=== PATIENT | male | born 1980 | race Two or more races ===

== ENCOUNTER 2023-08-06 09:46 | Day surgery (SDC) | payer OTHER, SELFPAY ==
[2023-08-06] VITALS (13 sets, daily range): BP systolic 128–157; BP diastolic 60–99; PULSE 76–100; RESP 12–40; TEMP 36.1–37.7; O2SAT 95–99; BMI 32.4
--- NOTE | ~2023-08-06 | CT_ITS ---
EXAMINATION: CT ABDOMEN AND PELVIS WITH CONTRAST CLINICAL INFORMATION: Abdominal pain, nausea, vomiting, hematemesis. COMPARISON: None available. TECHNIQUE: Multidetector volumetric images were obtained from the superior aspect of the liver through the pubic symphysis following administration 85 mL of Omnipaque 350 intravenous contrast. Sagittal and coronal reformatted images were obtained on the technologist's workstation. Oral contrast: No This CT examination was performed using dose optimization techniques as appropriate, variously including the following: *Automated exposure control *Adjustment of mA and/or kV according to patient size (this includes techniques or standardized protocols for targeted exams where dose is matched to indication/reason for exam; i.e. extremities or head) *Use of iterative reconstruction technique DLP: 590 mGy-cm FINDINGS: LUNG BASES: Normal. No pulmonary consolidation or pleural effusion. LIVER: Liver has normal size and contour. The liver has attenuation approximately 25 HU lower than the spleen on these portal venous phase images which suggests presence of steatosis. Otherwise, liver is unremarkable. GALLBLADDER AND BILIARY TREE: Gallbladder is without radiopaque stones, wall thickening or pericholecystic fluid. No dilated bile ducts. PANCREAS: Normal. No edema, pancreatic ductal dilatation or mass. SPLEEN: Normal. ADRENAL GLANDS: Normal. KIDNEYS AND URETERS: The kidneys have normal size and cortical thickness. No perinephric edema, urolithiasis or hydroureteronephrosis. 1.4 cm simple cyst of the left upper pole. No renal imaging follow-up is recommended for a simple cyst. BLADDER: Normal. No calculi or wall thickening. BOWEL AND PERITONEUM: There appears to be a very small sliding-type hiatal hernia. No dilated bowel loops. There are a few diverticula of the sigmoid colon without evidence of diverticulitis. The appendix measures up to 1.3 cm diameter and trace amount of periappendiceal fluid is noted. There is no visible focal defect in the appendiceal wall. No abscess. No pneumoperitoneum. ABDOMINAL WALL: Minimal protrusion of fat into the umbilicus. VASCULATURE: Normal. LYMPH NODES: No pathologic sized lymph nodes in the abdomen or pelvis. No inguinal lymphadenopathy. PELVIC VISCERA: Unremarkable. MUSCULOSKELETAL: Unremarkable. CT/CT abdomen pelvis w IV con IMPRESSION: * The appendix is dilated up to 1.3 cm and trace periappendiceal free fluid is present. Findings are consistent with acute appendicitis. * Diffuse hepatic steatosis. The critical test result was discussed with Yennifer Wilkinson at 2:17 pm on 08/06/2023 and it was ascertained that the content and the importance of the findings was understood at the time of the direct communication.
--- NOTE | 2023-08-06 10:02 | ED_ITS ---
HPI - Nausea/Vomiting/Diarrhea General Chief complaint: Abdominal Pain Stated complaint: Vomiting blood Time Seen by Provider: 08/06/23 09:55 Source: patient, RN notes reviewed and old records reviewed Mode of arrival: ambulatory Limitations: no limitations History of Present Illness HPI Narrative: 43 yo male with PMHx of PUD presents to the ED today with a complaint of diffuse abdominal pain and vomiting blood x1 day. Reports intractable nausea/vomiting, with dark red/black and green emesis. Admits symptoms are relieved with hot showers. Denies fever, chills, cough, chest pain, SOB, diarrhea or constipation, melena, brbpr, dysuria or hematuria. Not on AC. Denies illicit drug use including marijuana. MD elicited complaint: nausea and vomiting Related Data Allergies Allergy/AdvReac Type Severity Reaction Status Date / Time No Known Allergies Allergy Verified 08/06/23 09:48 Review of Systems Review of Systems: Constitutional: No Fever, No Chills, No Night Sweats, No Fatigue ENT/Mouth: No Ear Pain, No Nasal Congestion, No sore throat, No Rhinorrhea, No Swallowing Difficulty Eyes: No Eye Pain, No Swelling, No Redness Cardiovascular: No Chest Pain, No SOB, No Dyspnea on Exertion,No Edema, No Palpitations Respiratory: No Cough, No Sputum, No Dyspnea Gastrointestinal: + Nausea, + Vomiting, + hematemesis, No Diarrhea, No Con stipation, + Abdominal pain, No Hematochezia, No Melena Genitourinary: No irregular bleeding, No Dysuria, No Urinary Frequency, No Hematuria, No Urinary Incontinence/retention, No Urgency, No Flank Pain, No Urinary Flow Changes, No Hesitancy Musculoskeletal: No joint pain, No Myalgias, No Joint Swelling Skin: No Skin Lesions, No rash Neuro: No Weakness, No Numbness, No Dizziness, No Headache Yes all other systems are reviewed and are negative [facility] Past Medical History Attestation statement: The following information was validated with the patient. Source: old records reviewed Social History Social History Advance Directives: No Advance Directives Information Provided: Yes Physical Exam Vital Signs: Vital Signs: Last Vital Signs Temp 100 F 08/06/23 15:07 Pulse 76 08/06/23 15:07 Resp 12 08/06/23 15:07 BP 132/84 08/06/23 15:07 Pulse Ox 98 08/06/23 15:07 O2 Del Method Room Air 08/06/23 15:07 BMI result Body Mass Index 32.4 Const: Other: dry heaving during eval General: cooperative, no acute distress and anxious Orientation/consciousness: patient oriented x3 Limitations: no limitations HEENT: Head: Yes normal to inspection and Yes atraumatic Ears: hearing gr ossly normal bilaterally General nose exam: Normal external nose present Face and sinus: Yes normal facial exam Eyes: General: appearance normal, both eyes and all related structures EOM: EOMs intact bilaterally Neck: Neck: Yes normal visual inspection and Yes no meningeal signs Resp: Effort & Inspection: normal respiratory effort and no respiratory distr ess Auscultation: clear to auscultation bilaterally Cardio: Rate: regular rate Heart sounds: S1 normal heart sound present and S2 normal heart sound present GI: Inspection: Yes normal to inspection Palpation (GI): Soft to palpation, Tenderness to palpation present (GI) (diffusely) with no rebound tenderness, no guarding and not rigid : General: Yes no CVA tenderness Back/Spine/Pelvis: Back: no CVA tenderness Skin: Rashes: no rashes Wounds: no wounds Neuro: General: patient oriented x3, tone normal and no meningeal signs Cranial nerves: Yes CN's II-XII intact bilaterally Gait exam (Neuro): Normal gait present Extrem: General: Yes normal to inspection Course Course Course Narrative: -1111--noted leukocytosis of 19.8 > likely reactive from nausea/vomiting and dry heaving. T bili and ALT mildly elevated -labs otherwise reassuring -[id number]--received call from [facility] patient with acute appendicitis measuring 1.3 cm with fluid and +FF >> general surgery, Dr. Lopez consulted > patient will be admitted to surgery for further management Medications Administered Discontinued Medications Generic Name Dose Route Start Last Admin Trade Name Freq PRN Reason Stop Dose Admin Famotidine 20 mg 08/06/23 10:13 08/06/23 10:29 Famotidine/Pf 20 Mg/2 Ml Vial IVPUSH 08/06/23 10:14 20 mg ONCE ONE Administration Sodium Chloride 1,000 mls @ 999 mls/hr 08/06/23 10:15 08/06/23 11:35 Ns IV 08/06/23 11:15 Infused .Q1H1M DAGO Infusion Piperacillin Sod/Tazobactam 50 mls @ 100 mls/hr 08/06/23 11:11 08/06/23 12:41 Sod 3.375 gm/ Sodium Chloride IV 08/06/23 11:40 Infused ONCE ONE Infusion Iohexol 100 ml 08/06/23 13:29 08/06/23 13:30 Iohexol 350 Mg/Ml 100 Ml Infus..Btl IV 08/06/23 13:30 85 ml ONCE ONE Administration Morphine Sulfate 4 mg 08/06/23 10:13 08/06/23 10:32 Morphine Sulfate 2 Mg/Ml Cartridge IVPUSH 08/06/23 10:14 4 mg ONCE ONE Administration Protocol Ondansetron HCl 4 mg 08/06/23 10:13 08/06/23 10:29 Ondansetron Hcl 4 Mg/2 Ml Vial IVPUSH 08/06/23 10:14 4 mg ONCE ONE Administration Medical Decision Making Medical Decision Making MDM Narrative: 43 yo male with PMHx of PUD presents to the ED today with a complaint of diffuse abdominal pain and vomiting blood x1 day. Reports intractable nausea/vomiting, with dark red/black and green emesis. Patient initially tachypnic to 40 se condary to pain and dry heaving. Now down to 22 respirations/minute. Afebrile. Normal sinus rhythm. Abdomen soft, diffusely tender to palpation without rebound or guarding. No CVAT, no blood noted on rectal. Clinical concern for PUD vs GI bleed vs gastroenteritis vs dehydration vs pancreatitis vs diverticulitis. Low suspicion for ischemic bowel, diverticulosis, bowel perforation, appendicitis, cholecystitis, acute abdomen. Plan: labs, imaging, IVF, abx, pain control Please refer to course for remaining clinical decision making, interpretation of labs/imaging results, and discussions with consultants and/or family members. Differential Diagnosis Differential Diagnoses: The differential diagnosis associated with the presentation includes As above Admission/Observation Consideration of admission/observation: Escalation of care including admission/observation considered Admitted to general surgery for acute appendicitis. Consult Healthcare Provider Management of the patient was discussed with: Blueprint Machine Operator (General surgery- Dr. Melissa) Lab Data [facility] Lab Attestation statement: I reviewed the patient's lab results. As above. 08/06/23 10:27 08/06/23 10:27 Labs: Lab Results 08/06/23 08/06/23 08/06/23 Range/Units 10:27 10:27 10:27 WBC 19.8 H (4.8-10.8) X10*3/uL RBC 5.15 (4.60-5.80) X10*6/uL Hgb 16.0 (14.0-18.0) g/dl Hct 45.3 (42.0-52.0) % MCV 88.0 (80.0-98.0) fL MCH 31.1 (27.0-33.0) pg MCHC 35.3 (31.0-36.0) g/dl RDW 12.2 (11.0-16.0) % Plt Count 418 H (160-400) X10*3/uL MPV 9.5 (9.4-12.4) fL Immature Gran % (Auto) 0.7 H (0.0-0.4) % Neut % (Auto) 85.1 H (45-73) % Lymph % (Auto) 10.5 L (20-40) % [place] % (Auto) 3.5 (2-11) % Eos % (Auto) 0.0 (0-4) % Baso % (Auto) 0.2 (0-2) % Lymph # (Auto) 2.1 (1.2-4.9) X10*3/uL [place] # (Auto) 0.7 (0.1-1.2) X10*3/uL Eos # (Auto) 0.0 (0.0-0.4) X10*3/uL Baso # (Auto) 0.0 (0.0-0.2) X10*3/uL Abs Immat Gran (auto) 0.13 H (0.00-0.03) X10*3/uL Absolute Neuts (auto) 16.8 H (2.0-8.3) x10*3/uL Absolute Nucleated RBC 0.000 (0.0-0.012) X10*3/uL Nucleated RBC % (auto) 0.0 (0.0-0.2) /100WBC PT 14.2 H (11.1-13.3) SEC INR 1.2 H (0.9-1.1) Sodium 141 (135-145) mmol/L Potassium 4.3 (3.3-5.1) mmol/L Chloride 105 (96-108) mmol/L Carbon Dioxide 22 (22-29) mmol/L Anion Gap 18 (12-20) BUN 15 (9-16) mg/dL Creatinine 1.12 (0.5-1.4) mg/dL Estim Creat Clear Calc 91.9 Estimated GFR > 60 Random Glucose 154 H (60-115) mg/dL Lactic Acid (0.5-2.0) mmol/L Calcium 10.6 H (8.4-10.2) mg/dL Magnesium 1.6 (1.6-2.6) mg/dL Total Bilirubin 1.2 H (0.0-1.0) mg/dL Direct Bilirubin 0.4 (0.0-0.5) mg/dL AST 32 (5-37) U/L ALT 68 H (0-40) U/L Alkaline Phosphatase 77 (39-117) U/L Total Protein 8.2 H (6.5-8.0) g/dL Albumin 4.9 (3.5-5.0) g/dL Lipase 16 (8-78) U/L Urine Color Urine Appearance Urine pH (5.0-9.0) Ur Specific [place] (1.005-1.025) Urine Protein (Neg-Trace) mg/dL Urine Glucose (UA) (Negative) mg/dL Urine Ketones (Negative) mg/dL Urine Blood (Negative) Urine Nitrite (Negative) Ur Leukocyte Esterase (Negative) Urine RBC (0-2) /HPF Urine WBC (0-5) /HPF Ur Squamous Epith Cells (0-2) /HPF Urine Bacteria (None Seen) Hyaline Casts (0-2) /LPF Stool Occult Blood (NEGATIVE) Urine Opiates Screen (Not Detect) Urine Fentanyl Screen (Not Detect) Ur Barbiturates Screen (Not Detect) Ur Phencyclidine Scrn (Not Detect) Ur Amphetamines Screen (Not Detect) U Benzodiazepines Scrn (Not Detect) Urine Cocaine Screen (Not Detect) U Marijuana (THC) Screen (Not Detect) Ethyl Alcohol mg/dL 08/06/23 08/06/23 08/06/23 Range/Units 10:53 11:12 11:12 WBC (4.8-10.8) X10*3/uL RBC (4.60-5.80) X10*6/uL Hgb (14.0-18.0) g/dl Hct (42.0-52.0) % MCV (80.0-98.0) fL MCH (27.0-33.0) pg MCHC (31.0-36.0) g/dl RDW (11.0-16.0) % Plt Count (160-400) X10*3/uL MPV (9.4-12.4) fL Immature Gran % (Auto) (0.0-0.4) % Neut % (Auto) (45-73) % Lymph % (Auto) (20-40) % [place] % (Auto) (2-11) % Eos % (Auto) (0-4) % Baso % (Auto) (0-2) % Lymph # (Auto) (1.2-4.9) X10*3/uL [place] # (Auto) (0.1-1.2) X10*3/uL Eos # (Auto) (0.0-0.4) X10*3/uL Baso # (Auto) (0.0-0.2) X10*3/uL Abs Immat Gran (auto) (0.00-0.03) X10*3/uL Absolute Neuts (auto) (2.0-8.3) x10*3/uL Absolute Nucleated RBC (0.0-0.012) X10*3/uL Nucleated RBC % (auto) (0.0-0.2) /100WBC PT (11.1-13.3) SEC INR (0.9-1.1) Sodium (135-145) mmol/L Potassium (3.3-5.1) mmol/L Chloride (96-108) mmol/L Carbon Dioxide (22-29) mmol/L Anion Gap (12-20) BUN (9-16) mg/dL Creatinine (0.5-1.4) mg/dL Estim Creat Clear Calc Estimated GFR Random Glucose (60-115) mg/dL Lactic Acid (0.5-2.0) mmol/L Calcium (8.4-10.2) mg/dL Magnesium (1.6-2.6) mg/dL Total Bilirubin (0.0-1.0) mg/dL Direct Bilirubin (0.0-0.5) mg/dL AST (5-37) U/L ALT (0-40) U/L Alkaline Phosphatase (39-117) U/L Total Protein (6.5-8.0) g/dL Albumin (3.5-5.0) g/dL Lipase (8-78) U/L Urine Color Yellow Urine Appearance Clear Urine pH 7.0 (5.0-9.0) Ur Specific [place] >= 1.030 H (1.005-1.025) Urine Protein 30 (1+) H (Neg-Trace) mg/dL Urine Glucose (UA) Negative (Negative) mg/dL Urine Ketones >=160 (Negative) mg/dL Urine Blood Negative (Negative) Urine Nitrite Negative (Negative) Ur Leukocyte Esterase Negative (Negative) Urine RBC 3-5 H (0-2) /HPF Urine WBC 0-5 (0-5) /HPF Ur Squamous Epith Cells 0-2 (0-2) /HPF Urine Bacteria None Seen (None Seen) Hyaline Casts 0-2 (0-2) /LPF Stool Occult Blood NEGATIVE (NEGATIVE) Urine Opiates Screen (Not Detect) Urine Fentanyl Screen (Not Detect) Ur Barbiturates Screen (Not Detect) Ur Phencyclidine Scrn (Not Detect) Ur Amphetamines Screen (Not Detect) U Benzodiazepines Scrn (Not Detect) Urine Cocaine Screen (Not Detect) U Marijuana (THC) Screen (Not Detect) Ethyl Alcohol < 10 mg/dL 08/06/23 08/06/23 Range/Units 11:12 11:43 WBC (4.8-10.8) X10*3/uL RBC (4.60-5.80) X10*6/uL Hgb (14.0-18.0) g/dl Hct (42.0-52.0) % MCV (80.0-98.0) fL MCH (27.0-33.0) pg MCHC (31.0-36.0) g/dl RDW (11.0-16.0) % Plt Count (160-400) X10*3/uL MPV (9.4-12.4) fL Immature Gran % (Auto) (0.0-0.4) % Neut % (Auto) (45-73) % Lymph % (Auto) (20-40) % [place] % (Auto) (2-11) % Eos % (Auto) (0-4) % Baso % (Auto) (0-2) % Lymph # (Auto) (1.2-4.9) X10*3/uL [place] # (Auto) (0.1-1.2) X10*3/uL Eos # (Auto) (0.0-0.4) X10*3/uL Baso # (Auto) (0.0-0.2) X10*3/uL Abs Immat Gran (auto) (0.00-0.03) X10*3/uL Absolute Neuts (auto) (2.0-8.3) x10*3/uL Absolute Nucleated RBC (0.0-0.012) X10*3/uL Nucleated RBC % (auto) (0.0-0.2) /100WBC PT (11.1-13.3) SEC INR (0.9-1.1) Sodium (135-145) mmol/L Potassium (3.3-5.1) mmol/L Chloride (96-108) mmol/L Carbon Dioxide (22-29) mmol/L Anion Gap (12-20) BUN (9-16) mg/dL Creatinine (0.5-1.4) mg/dL Estim Creat Clear Calc Estimated GFR Random Glucose (60-115) mg/dL Lactic Acid 1.7 (0.5-2.0) mmol/L Calcium (8.4-10.2) mg/dL Magnesium (1.6-2.6) mg/dL Total Bilirubin (0.0-1.0) mg/dL Direct Bilirubin (0.0-0.5) mg/dL AST (5-37) U/L ALT (0-40) U/L Alkaline Phosphatase (39-117) U/L Total Protein (6.5-8.0) g/dL Albumin (3.5-5.0) g/dL Lipase (8-78) U/L Urine Color Urine Appearance Urine pH (5.0-9.0) Ur Specific [place] (1.005-1.025) Urine Protein (Neg-Trace) mg/dL Urine Glucose (UA) (Negative) mg/dL Urine Ketones (Negative) mg/dL Urine Blood (Negative) Urine Nitrite (Negative) Ur Leukocyte Esterase (Negative) Urine RBC (0-2) /HPF Urine WBC (0-5) /HPF Ur Squamous Epith Cells (0-2) /HPF Urine Bacteria (None Seen) Hyaline Casts (0-2) /LPF Stool Occult Blood (NEGATIVE) Urine Opiates Screen POSITIVE H (Not Detect) Urine Fentanyl Screen Not Detected (Not Detect) Ur Barbiturates Screen Not Detected (Not Detect) Ur Phencyclidine Scrn Not Detected (Not Detect) Ur Amphetamines Screen Not Detected (Not Detect) U Benzodiazepines Scrn Not Detected (Not Detect) Urine Cocaine Screen POSITIVE H (Not Detect) U Marijuana (THC) Screen POSITIVE H (Not Detect) Ethyl Alcohol mg/dL Independent Interpretation I performed an independent interpretation of an: EKG (EKG normal sinus rhythm at a rate of 94. [place] interval 152. Nonspecific ST abnormality, prolonged QT. No STEMI) and CT Scan Interpretation: CT scan abdomen and pelvis showing free fluid around the appendix, agree with radiologist's interpretation. Radiology Impression Discussion of test interpretation with radiology: I have reviewed the radiologist's reading. Radiologist Impression: CT abdomen pelvis w IV con IMPRESSION: The appendix is dilated up to 1.3 cm and trace periappendiceal free fluid is present. Findings are consistent with acute appendicitis. Diffuse hepatic steatosis. ? ? The critical test result was discussed with Yennifer Wilkinson at 2:17 pm on 08/06/2023 and it was ascertained that the content and the importance of the findings was understood at the time of the direct communication. External Record Review External record reviewed: Inpatient record, Office record, Outpatient record, Prior outpatient labs, Prior outpatient radiology, Primary care record and Outside ED record Tests considered The following testing was considered but not selected: As above Prescription Management I considered prescription management with: Pain Medication Chronic Conditions Patient?s care impacted by: Other (Polysubstance use) Critical Care Time Critical Care Time Critical Care Time: Yes Total Critical Care Time: 45 Attestation: I have personally provided critical care time exclusive of time spent on separately billable procedures. Time includes review of lab data, radiology results, discussion with consultants, and monitoring for potential decompensation. Intervention performed as documented. Discharge Plan Discharge Clinical Impression: Acute appendicitis Patient Disposition: Admitted As Inpatient Interventions: Admission Worksheet (ED) Last Done: 08/06/23 14:55
--- NOTE | 2023-08-06 10:13 | ECG_ITS ---
Test Reason : abd pain Blood Pressure : / mmHG Vent. Rate : 094 BPM Atrial Rate : 094 BPM P-R Int : 152 ms QRS Dur : 088 ms QT Int : 392 ms P-R-T Axes : 072 -65 -14 degrees QTc Int : 490 ms Normal sinus rhythm Left axis deviation Pulmonary disease pattern Nonspecific ST abnormality Prolonged QT Abnormal ECG No previous ECGs available Referred By: Yennifer Wilkinson Electronically Signed By:NITIN CARVALHO
[2023-08-06] MEDS: Famotidine/PF 20 MG/2 ML VIAL IVPUSH (10:29)
[2023-08-06] MEDS: ondansetron HCL 4 MG/2 ML VIAL IVPUSH (10:29)
[2023-08-06] MEDS: 0.9 % Sodium Chloride 1,000 ML 999 ML IV (10:32)
[2023-08-06] MEDS: Morphine Sulfate 2 MG/ML CARTRIDGE 4 MG IVPUSH (10:32)
[2023-08-06 10:40] LABS: MANUAL DIFF FLAG NO
[2023-08-06 10:42] LABS: Basophils Percent Auto 0.2 % (0-2); Hematocrit 45.3 % (42.0-52.0); Imm Gran Abs Auto 0.13 X10*3/uL (0.00-0.03); Imm Gran Pct Auto 0.7 % (0.0-0.4); Lymphocytes Absolute Auto 2.1 X10*3/uL (1.2-4.9); Lymphocytes Percent Auto 10.5 % (20-40); Mean Corpuscular HGB Conc 35.3 g/dl (31.0-36.0); Mean Corpuscular Hemoglobin 31.1 pg (27.0-33.0); Mean Platelet Volume 9.5 fL (9.4-12.4); Monocytes Absolute Auto 0.7 X10*3/uL (0.1-1.2); Monocytes Percent Auto 3.5 % (2-11); Neutrophils Absolute Auto 16.8 x10*3/uL (2.0-8.3); Neutrophils Percent Auto 85.1 % (45-73); Platelet Count 418 X10*3/uL (160-400); Red Blood Count 5.15 X10*6/uL (4.60-5.80); Red Cell Distribution Width 12.2 % (11.0-16.0); White Blood Count 19.8 X10*3/uL (4.8-10.8)
[2023-08-06 10:49] LABS: INTERNATIONAL NORM RATIO 1.2 (0.9-1.1); Prothrombin Time 14.2 SEC (11.1-13.3)
[2023-08-06 11:04] LABS: Alanine Aminotransferase 68 U/L (0-40); Albumin Level 4.9 g/dL (3.5-5.0); Alkaline Phosphatase 77 U/L (39-117); Anion Gap 18 (12-20); Aspartate Amino Transferase 32 U/L (5-37); Bilirubin Direct 0.4 mg/dL (0.0-0.5); Bilirubin Total 1.2 mg/dL (0.0-1.0); Blood Urea Nitrogen 15 mg/dL (9-16); Calcium 10.6 mg/dL (8.4-10.2); Carbon Dioxide 22 mmol/L (22-29); Chloride 105 mmol/L (96-108); Creatinine Clr Calc Pharmacy 91.9; Estimated Glomerular Filt Rate > 60; Glucose Random 154 mg/dL (60-115); Lipase 16 U/L (8-78); Magnesium 1.6 mg/dL (1.6-2.6); Potassium 4.3 mmol/L (3.3-5.1); Sodium 141 mmol/L (135-145); Total Protein 8.2 g/dL (6.5-8.0)
[2023-08-06 11:15] LABS: Ethanol < 10 mg/dL
[2023-08-06 11:24] LABS: Appearance Urine Clear; Color Urine Yellow; Glucose Urine UA Negative (Negative); Leukocyte Esterase Urine Negative (Negative); Nitrite Urine Negative (Negative); OBS Int Ctl Valid YES; OBS1 NEGATIVE (NEGATIVE); Specific Gravity - Urine >= 1.030 (1.005-1.025); UMIC TRIGGER UACC YES; Urine Blood Negative (Negative); Urine Ketones >=160 mg/dL (Negative); Urine Protein 30 (1+) mg/dL (Neg-Trace)
[2023-08-06 11:27] LABS: Bacteria Urine None Seen (None Seen); Hyaline Casts Urine 0-2 /LPF (0-2); Squamous Epithelial Cell Urine 0-2 /HPF (0-2); WBC Urine 0-5 /HPF (0-5)
[2023-08-06 11:36] LABS: Amphetamine Screen Urine Not Detected (Not Detect); Barbiturates, Urine Not Detected (Not Detect); Benzodiazepines Screen Urine Not Detected (Not Detect); Cannabinoid Screen Urine POSITIVE (Not Detect); Cocaine Screen Urine POSITIVE (Not Detect); Fentanyl, urine Not Detected (Not Detect); Opiate Screen Urine POSITIVE (Not Detect); Phencyclidine Screen Urine Not Detected (Not Detect)
[2023-08-06] MEDS: Piperacillin Sodium/Tazobactam 3.375 GM in 0.9 % Sodium Chloride 50 ML IV (11:57)
[2023-08-06 12:08] LABS: Lactic Acid 1.7 mmol/L (0.5-2.0)
--- NOTE | 2023-08-06 12:53 | PC.NURSE ---
patient resting in bed, states he is feeling better, states his pain is under control witha 2
[2023-08-06] MEDS: iohexoL 350 MG/ML 100 ML INFUS..BTL IV (13:30)
--- NOTE | 2023-08-06 14:41 | P.HPGS_ITS ---
History of Present Illness History of Present Illness Date of Service: 08/06/23 Chief complaint: Vomiting blood Narrative: 43-year-old male patient presenting with complaints of abdominal pain associated with nausea, vomiting, constipation and hematemesis. He reports upper abdominal pain for approximately 1 year since his previous abdominal surgery. He reports over the past 2 days the pain became worse is located more in the lower abdomen, associated with anorexia, nausea and vomiting. The pain is made better by warm water any spent several hours in the shower yesterday for relief. Pain is increased with eating. Workup in the emergency department revealed an elevated WBC of 19. CT abdomen and pelvis revealed an inflamed appendix measuring 1.3 cm. Also noted was a sliding hiatal hernia. He is admitted to the surgical service for management of acute appendicitis. Review of Systems Review of Systems: Yes all other systems are reviewed and are negative Constitutional: Constitutional: Denies chills, Reports fever(s), Denies headache(s), Reports poor appetite and Denies weakness ENT: Denies headache(s) Cardiovascular: Cardiovascular: Denies chest pain, Denies irregular heart rhythm, Denies palpitations and Denies dyspnea Respiratory: Respiratory: Denies cough, Denies excessive phlegm production and Denies dyspnea Gastrointestinal: Gastrointestinal: Reports abdominal pain, Reports bloating, Denies change in bowel habits, Reports constipation, Reports heartburn, Denies diarrhea, Reports nausea and Reports vomiting Genitourinary: Genitourinary: Denies difficulty urinating and Denies urinary frequency Musculoskeletal: Musculoskeletal: Denies back pain, Denies muscle weakness and Denies numbness Integumentary/Breasts: Skin/Breast: Denies changing lesions and Denies unusual bruising Neurologic: Denies headache(s), Denies numbness, Denies paresthesias and Denies weakness Psychiatric: Psychiatric: Denies anxiety and Denies depression Endocrine: Endocrine: Denies palpitations Hematologic/Lymphatic: Hematologic/Lymphatic: Denies lymphadenopathy [facility] Social History Social History Advance Directives: No Advance Directives Information Provided: Yes Meds Allergies Allergy/AdvReac Type Severity Reaction Status Date / Time No Known Allergies Allergy Verified 08/06/23 09:48 Physical Exam Vital Signs: Vital Signs: Last Vital Signs Temp 98.0 F 08/06/23 14:37 Pulse 77 08/06/23 14:37 Resp 18 08/06/23 14:37 BP 132/84 08/06/23 14:37 Pulse Ox 97 08/06/23 14:37 O2 Del Method Room Air 08/06/23 14:37 BMI result Body Mass Index 32.4 Const: General: cooperative and no acute distress Nutritional Appearance: well nourished Orientation/consciousness: patient oriented x3 Limitations: no limitations HEENT: Head: Yes normocephalic and Yes atraumatic Ears: hearing grossly normal bilaterally Resp: Effort & Inspection: normal respiratory effort, no audible wheezes, no cough and no respiratory distress Cardio: Jugular venous distension: no JVD GI: Inspection: Yes normal to inspection Palpation (GI): Soft to palpation, Tenderness to palpation present (GI) in the LLQ, in the RLQ and at McBurney's point, no guarding and not rigid Percussion: Yes normal to percussion Auscultation: Absent bowel sounds Rectal Exam - Male: Yes deferred Skin: Other: Warm, dry, no rash Neuro: General: patient oriented x3 Extrem: General: Yes no clubbing, cyanosis or edema Results Results Labs: Short CBC 08/06/23 Range/Units 10:27 WBC 19.8 H (4.8-10.8) X10*3/uL Hgb 16.0 (14.0-18.0) g/dl Hct 45.3 (42.0-52.0) % Plt Count 418 H (160-400) X10*3/uL BMP 08/06/23 10:27 Sodium 141 Potassium 4.3 Chloride 105 Carbon Dioxide 22 BUN 15 Creatinine 1.12 Calcium 10.6 H Liver Function 08/06/23 Range/Units 10:27 Total Bilirubin 1.2 H (0.0-1.0) mg/dL Direct Bilirubin 0.4 (0.0-0.5) mg/dL AST 32 (5-37) U/L ALT 68 H (0-40) U/L Alkaline Phosphatase 77 (39-117) U/L Albumin 4.9 (3.5-5.0) g/dL Urine 08/06/23 Range/Units 11:12 Urine Color Yellow Urine Appearance Clear Urine pH 7.0 (5.0-9.0) Ur Specific [place] >= 1.030 H (1.005-1.025) Urine Protein 30 (1+) H (Neg-Trace) mg/dL Urine Glucose (UA) Negative (Negative) mg/dL Assessment and Plan (1) Acute appendicitis: Status: Acute Plan 43-year-old male patient presenting with complaints of diffuse abdominal pain associated with nausea, vomiting, fever, chills, found on CT to have evidence of acute appendicitis. We discussed with antibiotics verses laparoscopic appendectomy. After discussion of the procedure, risks, and alternatives, he consents to a laparoscopic or possible open appendectomy. He has been added onto the operative schedule for today. Time Spent With Patient Time: Total time managing care of this patient today ____ minutes. Quality Stroke Does the patient have a stroke diagnosis?: No VTE Prior VTE?: No VTE Risk Level:: Surgical - moderate VTE Device Contraindication: N/A - Device Ordered VTE Drug Contraindication: Treatment Not Indicated Procedures Date of Service Date of Service: 08/06/23
--- NOTE | 2023-08-06 15:12 | HO.ANESPROP2 ---
[facility] Active Problems Active Problems: All Active Problems (Updated 08/06/23 @ 14:26 by MERARY Parker) Acute appendicitis (Acute) Surgical History History of Problems with Anesthesia: No Social History Social History Advance Directives: No Advance Directives Information Provided: Yes Meds Allergies Allergy/AdvReac Type Severity Reaction Status Date / Time No Known Allergies Allergy Verified 08/06/23 09:48 Active Medications: Current Medications Hydromorphone HCl (Hydromorphone Hcl 0.5 Mg/0.5 Ml Syringe) 0.5 mg IVPUSH Q3H PRN; Protocol PRN Reason: Pain, Severe (Pain Scale 7-10) Cefotetan Disodium 2 gm/ (Sodium Chloride) 50 mls @ 100 mls/hr IV PREOP ONE Stop: 08/06/23 15:17 Lactated Ringer's (Lr) 1,000 mls @ 100 mls/hr IVCONT .Q10H DAGO Exam Exam Date and Time: August 06, 2023 1512 Height,Weight and Vital Signs: Height 5 ft 7 in Weight 93.894 kg Last Vital Signs Temp 100 F 08/06/23 15:07 Pulse 76 08/06/23 15:07 Resp 12 08/06/23 15:07 BP 132/84 08/06/23 15:07 Pulse Ox 98 08/06/23 15:07 O2 Del Method Room Air 08/06/23 15:07 Pertinent Lab Results Pertinent Lab Results: Laboratory Tests 08/06/23 08/06/23 08/06/23 10:27 10:27 10:27 WBC 19.8 H RBC 5.15 Hgb 16.0 Hct 45.3 MCV 88.0 MCH 31.1 MCHC 35.3 RDW 12.2 Plt Count 418 H MPV 9.5 Immature Gran % (Auto) 0.7 H Neut % (Auto) 85.1 H Lymph % (Auto) 10.5 L [place] % (Auto) 3.5 Eos % (Auto) 0.0 Baso % (Auto) 0.2 Lymph # (Auto) 2.1 [place] # (Auto) 0.7 Eos # (Auto) 0.0 Baso # (Auto) 0.0 Abs Immat Gran (auto) 0.13 H Absolute Neuts (auto) 16.8 H Absolute Nucleated RBC 0.000 Nucleated RBC % (auto) 0.0 PT 14.2 H INR 1.2 H Sodium 141 Potassium 4.3 Chloride 105 Carbon Dioxide 22 Anion Gap 18 BUN 15 Creatinine 1.12 Estim Creat Clear Calc 91.9 Estimated GFR > 60 Random Glucose 154 H Lactic Acid Calcium 10.6 H Magnesium 1.6 Total Bilirubin 1.2 H Direct Bilirubin 0.4 AST 32 ALT 68 H Alkaline Phosphatase 77 Total Protein 8.2 H Albumin 4.9 Lipase 16 Urine Color Urine Appearance Urine pH Ur Specific [place] Urine Protein Urine Glucose (UA) Urine Ketones Urine Blood Urine Nitrite Ur Leukocyte Esterase Urine RBC Urine WBC Ur Squamous Epith Cells Urine Bacteria Hyaline Casts Stool Occult Blood Urine Opiates Screen Urine Fentanyl Screen Ur Barbiturates Screen Ur Phencyclidine Scrn Ur Amphetamines Screen U Benzodiazepines Scrn Urine Cocaine Screen U Marijuana (THC) Screen Ethyl Alcohol 08/06/23 08/06/23 08/06/23 10:53 11:12 11:12 WBC RBC Hgb Hct MCV MCH MCHC RDW Plt Count MPV Immature Gran % (Auto) Neut % (Auto) Lymph % (Auto) [place] % (Auto) Eos % (Auto) Baso % (Auto) Lymph # (Auto) [place] # (Auto) Eos # (Auto) Baso # (Auto) Abs Immat Gran (auto) Absolute Neuts (auto) Absolute Nucleated RBC Nucleated RBC % (auto) PT INR Sodium Potassium Chloride Carbon Dioxide Anion Gap BUN Creatinine Estim Creat Clear Calc Estimated GFR Random Glucose Lactic Acid Calcium Magnesium Total Bilirubin Direct Bilirubin AST ALT Alkaline Phosphatase Total Protein Albumin Lipase Urine Color Yellow Urine Appearance Clear Urine pH 7.0 Ur Specific [place] >= 1.030 H Urine Protein 30 (1+) H Urine Glucose (UA) Negative Urine Ketones >=160 Urine Blood Negative Urine Nitrite Negative Ur Leukocyte Esterase Negative Urine RBC 3-5 H Urine WBC 0-5 Ur Squamous Epith Cells 0-2 Urine Bacteria None Seen Hyaline Casts 0-2 Stool Occult Blood NEGATIVE Urine Opiates Screen Urine Fentanyl Screen Ur Barbiturates Screen Ur Phencyclidine Scrn Ur Amphetamines Screen U Benzodiazepines Scrn Urine Cocaine Screen U Marijuana (THC) Screen Ethyl Alcohol < 10 08/06/23 08/06/23 11:12 11:43 WBC RBC Hgb Hct MCV MCH MCHC RDW Plt Count MPV Immature Gran % (Auto) Neut % (Auto) Lymph % (Auto) [place] % (Auto) Eos % (Auto) Baso % (Auto) Lymph # (Auto) [place] # (Auto) Eos # (Auto) Baso # (Auto) Abs Immat Gran (auto) Absolute Neuts (auto) Absolute Nucleated RBC Nucleated RBC % (auto) PT INR Sodium Potassium Chloride Carbon Dioxide Anion Gap BUN Creatinine Estim Creat Clear Calc Estimated GFR Random Glucose Lactic Acid 1.7 Calcium Magnesium Total Bilirubin Direct Bilirubin AST ALT Alkaline Phosphatase Total Protein Albumin Lipase Urine Color Urine Appearance Urine pH Ur Specific [place] Urine Protein Urine Glucose (UA) Urine Ketones Urine Blood Urine Nitrite Ur Leukocyte Esterase Urine RBC Urine WBC Ur Squamous Epith Cells Urine Bacteria Hyaline Casts Stool Occult Blood Urine Opiates Screen POSITIVE H Urine Fentanyl Screen Not Detected Ur Barbiturates Screen Not Detected Ur Phencyclidine Scrn Not Detected Ur Amphetamines Screen Not Detected U Benzodiazepines Scrn Not Detected Urine Cocaine Screen POSITIVE H U Marijuana (THC) Screen POSITIVE H Ethyl Alcohol Airway Mallampati Class: II TM Dist: >3cm Neck ROM: Full Loose/Missing/Broken Teeth: No Heart: RRR Lungs: CTA Assessment and Plan Assessment Anesthesia Assessment: Anesthesia Plan Discussed and Chart Reviewed Final Anesthetic Review History of Problems with Anesthesia: No NPO: Yes ASA Class: II and Emergency Final Preanesthetic Review: Meds/Allgs Chart Reviewed, Consent Obtained/Reviewed and Anes Risks/Benef Reviewed Patient Risk: Low Procedure Risk: Low Anesthetic Plan Anesthetic Plan: GA Disposition: Standard PACU Assessment & Plan Assessment & Plan (1) Acute appendicitis: Comment: Pt tested positive for cocaine in the urine. Pt adamantly denies cocaine use except for touching cocaine through a bag a few days ago. Pt was advised of all the risks inherent with undergoing anesthesia and surgery under the influence of cocaine including cardiac issues and even . Pt still refuses ingesting it. Surgeon advises emergent nature of surgery and we will go forward. Code(s): K35.80 - Unspecified acute appendicitis Category: Medical
--- NOTE | 2023-08-06 16:16 | PHA.MEDREC ---
Pharmacy Consult ? Medication Reconciliation Pharmacy has completed the medication reconciliation. Patient currently in the OR, med rec done by claim history. Kostas QuirozD
--- NOTE | 2023-08-06 16:35 | W.PM.OPN ---
Operative Note Operative Note Date of Service: 08/06/23 Narrative: Preoperative diagnosis: Acute appendicitis Postoperative diagnosis: Same Procedure: Laparoscopic appendectomy Surgeon: Glen Lopez MD Senior Director Of [employer]:none Anesthesia: General endotracheal Indications for procedure: 43-year-old male patient with abdominal pain diffusely found to have tenderness in the right lower quadrant. Laboratories revealed elevated WBC and CT confirmed acute appendicitis Operative findings: Acute appendicitis without perforation Specimen: Appendix Estimated blood loss: 5 mL Complications: Non Procedure details: Patient was brought to the OR and placed in a supine position. After administering general anesthesia the patient's abdomen was prepped with ChloraPrep and draped in a sterile fashion. A surgical time-out was called and consent confirmed. Patient received preoperative antibiotics and Venodyne boots were in place. Local anesthesia consisting of 0.75% Sensorcaine with epinephrine was infiltrated in periumbilical region. A 5 mm incision was made below the umbilicus and carried down through subcutaneous tissue. A Veress needle was then inserted while elevating abdominal cavity with towel clips. After a positive drop test the abdomen was insufflated to a pressure of 15 mm of mercury. The Veress needle was removed and a 5 mm trocar inserted. The camera was then inserted in the abdomen explored. A 2nd 5 mm trocars placed in the lower midline. A 12 mm trocar was then placed in the left lower quadrant. The patient was then placed in a Trendelenburg position and rotated to the left. The appendix was identified in the right lower quadrant and brought up using blunt dissecting clamps. The mesentery of the appendix was then divided using the LigaSure. The appendiceal artery was cauterized and divided using the LigaSure. Dissection was continued down to the base of the cecum. An Endo-BRICE stapler with a purple reload was then used to divide the appendix at the base with the cecum. The appendix was then placed in Endo-Catch bag and brought out through the left lower quadrant incision. The abdomen was then irrigated with saline solution and suctioned dry. Wounds were checked for hemostasis. CO2 was then evacuated from the abdominal cavity and all trocars removed. Fascia was closed in the left lower quadrant incision using a [id number] 0 Polysorb suture. Skin was closed at all incisions using a subcuticular 4-0 Polysorb suture. Steri-Strips 2 x 2 gauze and Tegaderm were then applied. The patient tolerated the procedure well. Sponge, instrument, needle counts reported as correct. The patient was transferred to PACU in stable condition.
[2023-08-06] MEDS: Dextrose 5 % and Lactated Ring 1,000 ML 125 ML IVCONT (18:19)
[2023-08-06] MEDS: Acetaminophen 1,000 MG/100 ML PIGGYBACK 400 MG IV ×2 (18:19→23:30)
[2023-08-07] MEDS: Dextrose 5 % and Lactated Ring 1,000 ML 125 ML IVCONT (04:07)
[2023-08-07] MEDS: Omeprazole 20 MG CAPSULE.DR PO (05:55)
[2023-08-07 07:10] VITALS: BP 139/81; PULSE 60; RESP 18; TEMP 36.7; O2SAT 98
--- NOTE | 2023-08-07 09:23 | PM.DS ---
DS: Providers Provider Date of Service: 08/07/23 Date of discharge: 08/07/23 Primary care physician: Unknown Physician Admitting clinician: Glen Lopez Discharging clinician: Glen Lopez DS: Diagnosis Discharge Diagnosis (1) Acute appendicitis: Status: Acute DS: Summary Hospital Course Hospital Course: 43-year-old male presenting with complaints of abdominal pain in the lower abdomen. He reports a history of upper abdominal pain related to a hiatal hernia repair 1 year ago however the new pain is more in the lower abdomen right greater than left. He reports nausea, vomiting, anorexia and constipation. Presented to the emergency department for further evaluation. [place] [address] abdomen and pelvis revealed a sliding-type hiatal hernia as well as a thickened appendix measuring 1.3 cm with inflammatory changes suggestive of acute appendicitis. On examination the patient had tenderness in the lower abdomen right greater than left without rebound or guarding. Findings were suggestive of acute appendicitis. Patient underwent a laparoscopic appendectomy on 08/06/2023. Operative findings were consistent with acute appendicitis without perforation. He remained hemodynamically stable throughout the surgery and postoperatively. On postop day 1, the patient felt much improved with decreased abdominal pain. He was able to tolerate a regular diet without nausea or vomiting. He will be discharged home. Plan is for follow-up in the office in 1 week. He should avoid lifting greater than 10 lb for 2 weeks. He may resume regular diet. Should avoid driving for the 1st week after surgery. Time spent discussing smoking cessation with patient: 3 to 10 minutes Status at Discharge Functional status at discharge: independent ambulation Overall status at discharge: patient is back to baseline Time Spent with Patient Time attestation: Total time managing care of this patient today ____ minutes. Discharge coordination time: Less than 30 minutes Quality: Safe Use of Opioids Does Pt have an Active Cancer Diagnosis on the Problem List?: No Quality: Stroke Does the patient have a stroke diagnosis?: No Physical Exam Vital Signs: Vital Signs: Last Vital Signs Temp 98.0 F 08/07/23 07:10 Pulse 60 08/07/23 07:10 Resp 18 08/07/23 07:10 BP 139/81 08/07/23 07:10 Pulse Ox 98 08/07/23 07:10 O2 Del Method Room Air 08/07/23 07:10 BMI result Body Mass Index 32.4 Const: General: no acute distress Resp: Effort & Inspection: normal respiratory effort GI: Other: Trocar incisions are clean, dry, and intact without redness or discharge. Inspection: Yes normal to inspection Skin: Other: Warm, dry, no rash Extrem: Other: No edema DS: Data Data Completed and Pending Pending studies at discharge: Pending at discharge 08/06/23 16:09 Surgical [PTH] Routine Labs on day of discharge: Laboratory Results - last 24 hr 08/06/23 08/06/23 08/06/23 10:27 10:27 10:27 WBC 19.8 H RBC 5.15 Hgb 16.0 Hct 45.3 MCV 88.0 MCH 31.1 MCHC 35.3 RDW 12.2 Plt Count 418 H MPV 9.5 Immature Gran % (Auto) 0.7 H Neut % (Auto) 85.1 H Lymph % (Auto) 10.5 L [place] % (Auto) 3.5 Eos % (Auto) 0.0 Baso % (Auto) 0.2 Lymph # (Auto) 2.1 [place] # (Auto) 0.7 Eos # (Auto) 0.0 Baso # (Auto) 0.0 Abs Immat Gran (auto) 0.13 H Absolute Neuts (auto) 16.8 H Absolute Nucleated RBC 0.000 Nucleated RBC % (auto) 0.0 PT 14.2 H INR 1.2 H Sodium 141 Potassium 4.3 Chloride 105 Carbon Dioxide 22 Anion Gap 18 BUN 15 Creatinine 1.12 Estim Creat Clear Calc 91.9 Estimated GFR > 60 Random Glucose 154 H Lactic Acid Calcium 10.6 H Magnesium 1.6 Total Bilirubin 1.2 H Direct Bilirubin 0.4 AST 32 ALT 68 H Alkaline Phosphatase 77 Total Protein 8.2 H Albumin 4.9 Lipase 16 Urine Color Urine Appearance Urine pH Ur Specific [place] Urine Protein Urine Glucose (UA) Urine Ketones Urine Blood Urine Nitrite Ur Leukocyte Esterase Urine RBC Urine WBC Ur Squamous Epith Cells Urine Bacteria Hyaline Casts Stool Occult Blood Urine Opiates Screen Urine Fentanyl Screen Ur Barbiturates Screen Ur Phencyclidine Scrn Ur Amphetamines Screen U Benzodiazepines Scrn Urine Cocaine Screen U Marijuana (THC) Screen Ethyl Alcohol 08/06/23 08/06/23 08/06/23 10:53 11:12 11:12 WBC RBC Hgb Hct MCV MCH MCHC RDW Plt Count MPV Immature Gran % (Auto) Neut % (Auto) Lymph % (Auto) [place] % (Auto) Eos % (Auto) Baso % (Auto) Lymph # (Auto) [place] # (Auto) Eos # (Auto) Baso # (Auto) Abs Immat Gran (auto) Absolute Neuts (auto) Absolute Nucleated RBC Nucleated RBC % (auto) PT INR Sodium Potassium Chloride Carbon Dioxide Anion Gap BUN Creatinine Estim Creat Clear Calc Estimated GFR Random Glucose Lactic Acid Calcium Magnesium Total Bilirubin Direct Bilirubin AST ALT Alkaline Phosphatase Total Protein Albumin Lipase Urine Color Yellow Urine Appearance Clear Urine pH 7.0 Ur Specific [place] >= 1.030 H Urine Protein 30 (1+) H Urine Glucose (UA) Negative Urine Ketones >=160 Urine Blood Negative Urine Nitrite Negative Ur Leukocyte Esterase Negative Urine RBC 3-5 H Urine WBC 0-5 Ur Squamous Epith Cells 0-2 Urine Bacteria None Seen Hyaline Casts 0-2 Stool Occult Blood NEGATIVE Urine Opiates Screen Urine Fentanyl Screen Ur Barbiturates Screen Ur Phencyclidine Scrn Ur Amphetamines Screen U Benzodiazepines Scrn Urine Cocaine Screen U Marijuana (THC) Screen Ethyl Alcohol < 10 08/06/23 08/06/23 11:12 11:43 WBC RBC Hgb Hct MCV MCH MCHC RDW Plt Count MPV Immature Gran % (Auto) Neut % (Auto) Lymph % (Auto) [place] % (Auto) Eos % (Auto) Baso % (Auto) Lymph # (Auto) [place] # (Auto) Eos # (Auto) Baso # (Auto) Abs Immat Gran (auto) Absolute Neuts (auto) Absolute Nucleated RBC Nucleated RBC % (auto) PT INR Sodium Potassium Chloride Carbon Dioxide Anion Gap BUN Creatinine Estim Creat Clear Calc Estimated GFR Random Glucose Lactic Acid 1.7 Calcium Magnesium Total Bilirubin Direct Bilirubin AST ALT Alkaline Phosphatase Total Protein Albumin Lipase Urine Color Urine Appearance Urine pH Ur Specific [place] Urine Protein Urine Glucose (UA) Urine Ketones Urine Blood Urine Nitrite Ur Leukocyte Esterase Urine RBC Urine WBC Ur Squamous Epith Cells Urine Bacteria Hyaline Casts Stool Occult Blood Urine Opiates Screen POSITIVE H Urine Fentanyl Screen Not Detected Ur Barbiturates Screen Not Detected Ur Phencyclidine Scrn Not Detected Ur Amphetamines Screen Not Detected U Benzodiazepines Scrn Not Detected Urine Cocaine Screen POSITIVE H U Marijuana (THC) Screen POSITIVE H Ethyl Alcohol Discharge Plan Discharge Patient Disposition: Home, Self-Care Referrals: Glen Lopez MD [Physician] - 1 Week Physician,Tiffany J [Primary Care Provider] - 1 Week Discharge Medications: New oxycodone 5 mg tablet 5 mg PO Q6H PRN (Reason: pain (scale score 7-10)) Qty: 15 0RF Rx Instructions: Partial Fill upon patient request. Continued pantoprazole 40 mg tablet,delayed release (DR/EC) 40 mg PO DAILY Discharge Orders: Discharge Order (Routine); Ordered 08/07/23 Ordered By: Glen Lopez Diet: Advance to usual diet Activity on Discharge: No heavy lifting Activity Restrictions/Additional Instructions: No lifting > 10 pounds for 2 weeks No driving for one week Ice to the incision x 24 hours After 24 hours, use warm compress or heating pad on low as needed Take Tylenol Extra-strength 1-2 tabs every 6 hours for the first day, then prn Oxycodone every 6-8 hours as needed for pain Colace 100 mg every day as needed for constipation Remove dressing in 3 days Follow up in office in one week.
--- NOTE | 2023-08-07 11:27 | HO.POSTANES ---
Post Anesthesia Evaluation Post Anesthesia Evaluation Date of Service: 08/07/23 Vital Signs: Vital Signs Temp Pulse Resp BP Pulse Ox O2 Del Method 08/07/23 07:10 98.0 F 60 18 139/81 98 Room Air 08/07/23 02:43 Room Air Anesthesia: General Endotracheal-GETA Mental Status: Awake Pain Control: Satisfactory Nausea/Vomiting: None Hydration: Adequate Anesthesia-Related Issues: No Anes. Related Issues
== END 2023-08-07 10:44 | disposition home or self-care (01) ==
LOC: HO.ED 14:55 → HO.S3 16:43 → HO.MDS 18:13 → HO.S3 18:14
PROVIDERS: Physician Assistant; Emergency Provider Emergency Medicine; Visit Provider Surgery
PROC: 0DTJ4ZZ Resection of Appendix, Percutaneous Endoscopic Approach (ICD-10-PCS; CPT 44970; principal; 2023-08-06 15:30)
DX: K35.80 Unspecified acute appendicitis (principal); K92.0 Hematemesis; K27.9 Peptic ulcer, site unspecified, unspecified as acute or chronic, without hemorrhage or perforation; K76.0 Fatty (change of) liver, not elsewhere classified; R82.5 Elevated urine levels of drugs, medicaments and biological substances; Z79.899 Other long term (current) drug therapy
CPT/HCPCS: 44970; 36415; 74177; 80048; 80076; 80307; 81001; 82272; 83605; 83690; 83735; 85025; 85610; 87040; 88304; 93005; 96361; 96365; 96375; 99285; J0131; J0330; J1100; J1885; J2270; J2405; J2543; J3010; Q9967

== ENCOUNTER → 2023-08-06 10:00 | Outpatient (BNV) | payer OTHER, SELFPAY | PROVIDERS: Emergency Provider Emergency Medicine; Visit Provider Surgery | DX: K35.80 Unspecified acute appendicitis (principal) | CPT/HCPCS: 44970; 99024; 99222 ==

== ENCOUNTER 2023-08-15 08:29 | Outpatient (AMB) | payer OTHER, SELFPAY ==
[2023-08-15 08:38] VITALS: BP 146/80; PULSE 65; BMI 33.1
--- NOTE | 2023-08-15 08:38 | MHC.OFFVIS ---
Intake Vital Signs 08/15/23 08:38 Height 5 ft 7 in Weight 211 lb 6 oz BMI 33.1 BP 146/80 H Blood Pressure Location Lt brachial Position Sitting Pulse 65 Intake Visit Reasons: S/p lap appy Intake Note: Patient is seen in office for post op assessment post laparoscopic appendectomy. Patient c/o: admits to minimal constipation and straining, denies any concerns regarding the incision Exhaust Emissions Automotive Technician Required: No Accompanied by: Self / Same As Patient Allergies No Known Allergies Allergy (Verified 08/15/23 08:40) Medication List - Last Reconciled 08/15/23 by Glen Lopez MD pantoprazole 40 mg PO DAILY HPI HPI Comments History of Present Illness Details 43-year-old male status post laparoscopic appendectomy for acute appendicitis 1 week ago. He feels wrist abdominal pain he also reports decreased upper GI symptoms. He did contact his upper GI surgeon and will be evaluated next week for a possible recurrent hiatal hernia. He denies nausea, vomiting, fever or chills. [facility] Medical History (Updated 08/15/23 @ 08:46 by Glen Lopez MD) Acute appendicitis Surgical History History of laparoscopic appendectomy (~08/06/23) Social History Household Members: Family Housing: House Do you presently have visiting nurse or other home services: No Patient Tobacco Use Status: Never used Tobacco Physical Exam Vital Signs: Last Vital Signs Pulse 65 08/15/23 08:38 BP 146/80 H 08/15/23 08:38 BMI result Body Mass Index 33.1 Const General: comfortable and no acute distress Nutritional Appearance: well nourished Orientation/consciousness: patient oriented x3 Resp Effort & Inspection: normal respiratory effort GI Other: Soft, nondistended, nontender, well-healed trocar incisions. Neuro General: patient oriented x3 Extrem General: Yes normal to inspection Assessment & Plan Assessment & Plan (1) Acute appendicitis: Code(s): K35.80 - Unspecified acute appendicitis Qualifiers: Acute appendicitis type: with localized peritonitis Appendicitis gangrene presence: without gangrene Appendicitis perforation presence: without perforation Appendicitis abscess presence: without abscess Qualified Code(s): K35.30 - Acute appendicitis with localized peritonitis, without perforation or gangrene Plan 43-year-old male patient status post laparoscopic appendectomy 1 week ago. He tolerated the procedure well and his wounds are healing nicely. He should continue to avoid lifting greater than 10 lb and follow-up p.r.n.. He will follow up with his upper GI surgeon regarding the hiatal hernia next week. Coding Level of Care Code Global (34717) Diagnoses Acute appendicitis with localized peritonitis, without perforation, abscess, or gangrene K35.30 Acute appendicitis type: with localized peritonitis Appendicitis gangrene presence: without gangrene Appendicitis perforation presence: without perforation Appendicitis abscess presence: without abscess
== END 2023-08-15 08:53 | disposition home or self-care (01) ==
PROVIDERS: Visit Provider Surgery
DX: K35.30 Acute appendicitis with localized peritonitis, without perforation or gangrene (principal)
CPT/HCPCS: 99024

== ENCOUNTER → 2023-08-15 08:29 | Outpatient (BNVA) | payer OTHER, SELFPAY | PROVIDERS: Visit Provider Surgery ==

== ENCOUNTER 2024-12-24 14:31 | Emergency (ER) | payer OTHER, SELFPAY ==
--- NOTE | ~2024-12-24 | CT_ITS ---
CLINICAL HISTORY: Vomiting blood blood in stool. pmh bleeding ulcer CT Abdomen and Pelvis W/WO Contrast COMPARISON: CT/SR - CT ABDOMEN PELVIS W IV CON - 08/06/23 13:18 EDT FINDINGS: Diffusely hypodense liver consistent with hepatic steatosis. Hepatomegaly. Normal spleen. Subcentimeter hypodensity in the right kidney, too small to accurately characterize. Nonobstructing right renal calculus. No visible ureteral calculi. Unremarkable left kidney. No hydronephrosis. Normal adrenal glands. Normal pancreas. No visible cholelithiasis. No biliary dilation. Colonic diverticulosis without evidence of acute diverticulitis. Mild thickening of the lakhani of the sigmoid colon. No pneumatosis. No evidence of obstruction. No visible intraluminal IV contrast extravasation in the GI tract at the time of the study. Status post appendectomy. Unremarkable bladder. No ascites. No pneumoperitoneum. No lymphadenopathy. No acute fracture. No abdominal aortic aneurysm. Fat-containing umbilical hernia. IMPRESSION: Sigmoid colon wall thickening, which could be due to underdistention or colitis. No evidence of active GI bleed at the time of the study. Nonemergent/incidental findings above. This document has been electronically signed by: Melchor Wynn MD on 12/24/2024 22:09:52
[2024-12-24 15:13] VITALS: BP 170/92; PULSE 72; RESP 18; TEMP 36.1; O2SAT 97; BMI 35.2
--- NOTE | 2024-12-24 15:15 | ED.GENADULT ---
HPI - General Adult General Chief complaint: Abdominal Pain Stated complaint: abd pain rectal bleeding vomiting Time Seen by Provider: 12/24/24 19:28 Source: patient Mode of arrival: ambulatory Limitations: no limitations History of Present Illness ED Provider: Robert Holland HPI narrative: 44 yold with pmh of internal hemmorrhoids, bleeding ulcers, hiatal hernia presents to the ED for generalized abdominal pain, vomitting , diarrhea with bright red blood. Patient denies any chills, fever, or any recent trauma. Patient states he has not take his GERD medication in a while Related Data Home Medications ?Medication ?Instructions ?Recorded ?Confirmed pantoprazole 40 mg tablet,delayed 40 mg PO DAILY 08/06/23 08/15/23 release Previous Rx's ?Medication ?Instructions ?Recorded acetaminophen 325 mg capsule 325 mg PO QID PRN fever or pain 7 12/24/24 days #28 caps amoxicillin 875 mg-potassium 1 tab PO Q12H 10 days #20 tabs 12/24/24 clavulanate 125 mg tablet famotidine 40 mg tablet (Pepcid) 40 mg PO DAILY 14 days #14 tabs 12/24/24 Allergies Allergy/AdvReac Type Severity Reaction Status Date / Time No Known Allergies Allergy Verified 12/24/24 15:16 Review of Systems Review of Systems: abdominal pain, nausea, diarrhea, vomitting blood/blood in stool Yes all other systems are reviewed and are negative [facility] Past Medical History Medical History (Updated 12/25/24 @ 00:01 by Danny Bautista) Acute appendicitis Surgical History History of laparoscopic appendectomy (~08/06/23) Social History Social History Household Members: Family Housing: House Do you presently have visiting nurse or other home services: No Alcohol intake: former Patient Tobacco Use Status: Never used Tobacco Substance Use Type: Marijuana Physical Exam ED Vital Signs: Vital Signs - 24 hr 12/24/24 15:13 12/24/24 20:02 12/24/24 22:00 Temperature 97 F 97.9 F 98.1 F Pulse Rate 72 65 63 Respiratory Rate 18 16 16 Blood Pressure 170/92 H 159/92 H 142/81 H Pulse Oximetry 97 98 97 Oxygen Delivery Method Room Air Room Air Room Air 12/24/24 23:26 Temperature 98.1 F Pulse Rate 63 Respiratory Rate 16 Blood Pressure 142/81 H Pulse Oximetry 97 Oxygen Delivery Method Room Air BMI result Body Mass Index 35.2 Const General: cooperative, healthy appearing, comfortable, no acute distress, well developed, alert, awake and Physically active Orientation/consciousness: patient oriented x3 HENWV Head: Yes normal to inspection, Yes No palpable skull fracture present, Yes normocephalic and Yes atraumatic Throat: Yes posterior oropharynx normal, Yes tonsils normal and Yes uvula midline Eyes General: appearance normal, both eyes and all related structures Neck Neck: Yes normal visual inspection, Yes full ROM, Yes no lymphadenopathy, Yes no meningeal signs, Yes trachea midline, Yes supple, No anterior neck swelling and No tender Chest Chest palpation & inspection: normal inspection of the chest and normal palpation of entire chest wall Resp Effort & Inspection: normal respiratory effort and able to speak in complete sentences Auscultation: clear to auscultation bilaterally Cardio Jugular venous distension: no JVD Heart sounds: S1 normal heart sound present and S2 normal heart sound present GI Inspection: Yes normal to inspection Palpation (GI): Soft to palpation, not firm, Tenderness to palpation present (GI) in the epigastrum, in the LLQ, in the RLQ, in the LUQ and in the RUQ, no guarding and not rigid Other: Rectal exam negative for any bleeding, melena, external hemorrhoids, or ricardo blood. Stool normal color General: Yes CVA tenderness and Yes no CVA tenderness Back/Spine/Pelvis Back: no CVA tenderness, CVA tenderness and No back tenderness Skin General skin exam: no rashes or lesions noted, elasticity normal and turgor normal Neuro General: patient oriented x3, gait normal, tone normal, moves all extremities, Normal light touch and pain sensation, no meningeal signs, no focal motor deficits, CN's II-XI intact bilaterally and normal sensation to monofilament Extrem General: Yes normal to inspection, Yes full ROM and Yes capillary refill normal Psych Appearance: grossly normal, well kempt and not disheveled Course Course Course Narrative: RME, this is a rapid medical exam performed by [place] please refer to primary provider for complete H&P- 44-year-old male presents for evaluation of abdominal pain, vomiting and bloody stool. He reports a history of bleeding stomach ulcers as well as internal hemorrhoids. Plan for labs, viral swabs Medications Administered Discontinued Medications Generic Name Dose Route Start Last Admin Trade Name Joann PRN Reason Stop Dose Admin Al Hydroxide/Mg Hydroxide 30 ml 12/24/24 19:45 12/24/24 20:09 Magnesium Hydrox/Alum Hydrox 30 Ml Oral.Susp PO 12/24/24 19:46 30 ml ONCE ONE Administration Belladonna Alkaloids/Phenobarbital 10 ml 12/24/24 19:45 12/24/24 20:09 Phenobarb/Hyoscy/Atropine/Scop 10 Ml Elixir PO 12/24/24 19:46 10 ml ONCE ONE Administration Iohexol 100 ml 12/24/24 20:56 12/24/24 20:56 Iohexol 350 Mg/Ml 100 Ml Infus..Btl IV 12/24/24 20:57 85 ml ONCE ONE Administration Pantoprazole Sodium 80 mg 12/24/24 19:45 12/24/24 20:09 Pantoprazole Sodium 40 Mg/10 Ml Vial IVPUSH 12/24/24 19:46 80 mg ONCE ONE Administration Medical Decision Making Medical Decision Making MDM Narrative: 44-year-old male presents to ED for abdominal pain, vomiting, blood in stool the occurred this morning. Patient denies drinking any alcohol. Patient states history of bleeding ulcers internal hemorrhoids. Vital signs stable. Initial CBC normal. We will do repeat CBC, Protonix, Maalox, . Possible imaging. 10:53PM: PATIENT DID NOT HAVE ANY EPISODES OF VOMITING OR DIARRHEA WITH BLOOD IN THE ED. PATIENT'S REPEAT CBC NORMAL. CT SCAN GI BLEEDING SERIES CAME BACK NEGATIVE FOR BLEEDING, BUT DID SHOW SIGMOID THICKENING INDICATING COLITIS. PATIENT WILL BE DISCHARGED WITH ANTIBIOTICS AND PAIN MEDICATION. PATIENT INFORMED TO FOLLOW UP WITH PRIMARY CARE PROVIDER AND LABORATORY TECHNICAL SPECIALIST. PATIENT STATES HE FOLLOWS WITH [facility] TECHNICAL SPECIALIST PRIMARY CARE PROVIDER. PATIENT EXPLAINED WORRISOME SIGNS AND INFORMED TO RETURN TO THE ED IMMEDIATELY. Patient given copy of CT scan. Not suspecting GI bleeding, Ronel-Bautista tear, esophageal varices, abdominal perforation, or any other life-threatening etiology. Patient feels better. Differential Diagnosis Differential Diagnoses: The differential diagnosis associated with the presentation includes (GI BLEED, COLITIS, DIVERTICULITIS) Admission/Observation Consideration of admission/observation: Escalation of care including admission/observation considered Lab Data MDM Lab Attestation statement: I reviewed the patient's lab results. 12/24/24 20:00 12/24/24 15:20 Labs: Lab Results 12/24/24 12/24/24 Range/Units 15:20 20:00 WBC 10.3 10.8 (4.8-10.8) X10*3/uL RBC 5.33 5.26 (4.60-5.80) X10*6/uL Hgb 16.5 16.2 (14.0-18.0) g/dl Hct 47.8 46.4 (42.0-52.0) % MCV 89.7 88.2 (80.0-98.0) fL MCH 31.0 30.8 (27.0-33.0) pg MCHC 34.5 34.9 (31.0-36.0) g/dl RDW 12.6 12.6 (11.0-16.0) % Plt Count 324 308 (160-400) X10*3/uL MPV 9.2 L 9.1 L (9.4-12.4) fL Immature Gran % (Auto) 0.4 0.4 (0.0-0.4) % Neut % (Auto) 69.8 63.5 (45-73) % Lymph % (Auto) 23.3 27.8 (20-40) % [place] % (Auto) 5.0 5.8 (2-11) % Eos % (Auto) 1.2 1.9 (0-4) % Baso % (Auto) 0.3 0.6 (0-2) % Lymph # (Auto) 2.4 3.0 (1.2-4.9) X10*3/uL [place] # (Auto) 0.5 0.6 (0.1-1.2) X10*3/uL Eos # (Auto) 0.1 0.2 (0.0-0.4) X10*3/uL Baso # (Auto) 0.0 0.1 (0.0-0.2) X10*3/uL Abs Immat Gran (auto) 0.04 H 0.04 H (0.00-0.03) X10*3/uL Absolute Neuts (auto) 7.2 6.9 (2.0-8.3) x10*3/uL Absolute Nucleated RBC 0.000 0.000 (0.0-0.012) X10*3/uL Nucleated RBC % (auto) 0.0 0.0 (0.0-0.2) /100WBC PT 12.1 (10.9-12.4) SEC INR 1.0 (0.9-1.1) Sodium 145 (135-145) mmol/L Potassium 4.2 (3.3-5.1) mmol/L Chloride 106 (96-108) mmol/L Carbon Dioxide 31 H (22-29) mmol/L Anion Gap 12 (12-20) BUN 13 (9-16) mg/dL Creatinine 0.96 (0.5-1.4) mg/dL Estim Creat Clear Calc 110.6 Estimated GFR > 60 Random Glucose 113 (60-115) mg/dL Calcium 10.2 (8.4-10.2) mg/dL Total Bilirubin 0.7 (0.0-1.0) mg/dL AST 69 H (5-37) U/L ALT 146 H (0-40) U/L Alkaline Phosphatase 88 (39-117) U/L Total Protein 8.1 H (6.5-8.0) g/dL Albumin 4.7 (3.5-5.0) g/dL Lipase 77 (8-78) U/L Stool Occult Blood POSITIVE (NEGATIVE) Influenza Type A (PCR) NEGATIVE (Negative) Influenza Type B (PCR) NEGATIVE (Negative) RSV RNA Qual (PCR) NEGATIVE (Negative) SARS-CoV-2 RNA (RT-PCR) NEGATIVE (Negative) Independent Interpretation I performed an independent interpretation of an: CT Scan Radiology Impression Discussion of test interpretation with radiology: I have reviewed the radiologist's reading. Independent Historian Clinical information obtained from an independent historian. History obtained from or confirmed by: Other (PATIENT) Prescription Management I considered prescription management with: Antibiotic Discharge Plan Discharge Clinical Impression: Colitis, GERD (gastroesophageal reflux disease) Patient Disposition: Home, Self-Care Instructions: Gastroesophageal Reflux Disease (ED), Colitis (ED) Additional Instructions: YOUR LAB, BLOOD COUNT LEVEL CAME BACK REASSURING. GI BLEEDING CT SCAN CAME BACK NEGATIVE FOR ACTIVE GI BLEEDING, BUT DOES SHOW SIGMOID COLITIS WHICH WILL REQUIRE ANTIBIOTICS. NEGATIVE FOR ANY ACCESS. RETURN TO THE ED IMMEDIATELY FOR ANY WORSENING ABDOMINAL PAIN, NAUSEA, VOMITING, PROFUSE RECTAL BLEEDING, PROFUSE VOMITING BLOOD, FEVER, CHILLS, CHEST PAIN, OR ANY OTHER CONCERNING SYMPTOMS. YOU WILL BE GIVEN COPY OF IMAGING. Recommend follow-up with your primary care provider and cub reporter at [place] CT Abdomen and Pelvis W/WO Contrast COMPARISON: CT/SR - CT ABDOMEN PELVIS W IV CON - 08/06/23 13:18 EDT FINDINGS: Diffusely hypodense liver consistent with hepatic steatosis. Hepatomegaly. Normal spleen. Subcentimeter hypodensity in the right kidney, too small to accurately characterize. Nonobstructing right renal calculus. No visible ureteral calculi. Unremarkable left kidney. No hydronephrosis. Normal adrenal glands. Normal pancreas. No visible cholelithiasis. No biliary dilation. Colonic diverticulosis without evidence of acute diverticulitis. Mild thickening of the lakhani of the sigmoid colon. No pneumatosis. No evidence of obstruction. No visible intraluminal IV contrast extravasation in the GI tract at the time of the study. Status post appendectomy. Unremarkable bladder. No ascites. No pneumoperitoneum. No lymphadenopathy. No acute fracture. No abdominal aortic aneurysm. Fat-containing umbilical hernia. IMPRESSION: Sigmoid colon wall thickening, which could be due to underdistention or colitis. No evidence of active GI bleed at the time of the study. Nonemergent/incidental findings above. This document has been electronically signed by: Ricardo Wynn MD on 12/24/2024 22:09:52 Dictated By: Ricardo Wynn MD Signed By: <Electronically signed by Ricardo Wynn MD in OV> 12/24/24 2210 Prescriptions: New amoxicillin-pot clavulanate 875-125 mg tablet 1 tab PO Q12H 10 Days Qty: 20 0RF acetaminophen 325 mg capsule 325 mg PO QID PRN (Reason: fever or pain) 7 Days Qty: 28 0RF famotidine [Pepcid] 40 mg tablet 40 mg PO DAILY 14 Days Qty: 14 0RF No Action pantoprazole 40 mg tablet,delayed release (DR/EC) 40 mg PO DAILY Stand Alone Forms: Work/School Release Interventions: ED Discharge Assessment Last Done: 12/24/24 23:26 Discharge Date/Time: 12/24/24 23:27 Print Language: Welsh
[2024-12-24 15:27] LABS: MANUAL DIFF FLAG NO
[2024-12-24 15:34] LABS: Basophils Percent Auto 0.3 % (0-2); Eosinophils Absolute Auto 0.1 X10*3/uL (0.0-0.4); Eosinophils Percent Auto 1.2 % (0-4); Hematocrit 47.8 % (42.0-52.0); Hemoglobin 16.5 g/dl (14.0-18.0); Imm Gran Abs Auto 0.04 X10*3/uL (0.00-0.03); Imm Gran Pct Auto 0.4 % (0.0-0.4); Lymphocytes Absolute Auto 2.4 X10*3/uL (1.2-4.9); Lymphocytes Percent Auto 23.3 % (20-40); Mean Corpuscular HGB Conc 34.5 g/dl (31.0-36.0); Mean Corpuscular Volume 89.7 fL (80.0-98.0); Mean Platelet Volume 9.2 fL (9.4-12.4); Monocytes Absolute Auto 0.5 X10*3/uL (0.1-1.2); Neutrophils Absolute Auto 7.2 x10*3/uL (2.0-8.3); Neutrophils Percent Auto 69.8 % (45-73); Platelet Count 324 X10*3/uL (160-400); Red Blood Count 5.33 X10*6/uL (4.60-5.80); Red Cell Distribution Width 12.6 % (11.0-16.0); White Blood Count 10.3 X10*3/uL (4.8-10.8)
[2024-12-24 15:43] LABS: Alanine Aminotransferase 146 U/L (0-40); Albumin Level 4.7 g/dL (3.5-5.0); Anion Gap 12 (12-20); Aspartate Amino Transferase 69 U/L (5-37); Bilirubin Total 0.7 mg/dL (0.0-1.0); Blood Urea Nitrogen 13 mg/dL (9-16); Calcium 10.2 mg/dL (8.4-10.2); Carbon Dioxide 31 mmol/L (22-29); Chloride 106 mmol/L (96-108); Creatinine Clr Calc Pharmacy 110.6; Estimated Glomerular Filt Rate > 60; Glucose Random 113 mg/dL (60-115); Lipase 77 U/L (8-78); Potassium 4.2 mmol/L (3.3-5.1); Sodium 145 mmol/L (135-145); Total Protein 8.1 g/dL (6.5-8.0)
[2024-12-24 15:45] LABS: Prothrombin Time 12.1 SEC (10.9-12.4)
[2024-12-24 16:03] LABS: Alkaline Phosphatase 88 U/L (39-117)
[2024-12-24 16:12] LABS: Influenza A PCR NEGATIVE (Negative); Influenza B PCR NEGATIVE (Negative); Resp Syncy Virus RNA Qual PCR NEGATIVE (Negative); SARS COV2 PCR INHOUSE NEGATIVE (Negative)
[2024-12-24 20:02] VITALS: BP 159/92; PULSE 65; RESP 16; TEMP 36.6; O2SAT 98
[2024-12-24 20:03] LABS: OBS Int Ctl Valid YES; OBS1 POSITIVE (NEGATIVE)
[2024-12-24 20:04] LABS: MANUAL DIFF FLAG NO
[2024-12-24 20:08] LABS: Basophils Absolute Auto 0.1 X10*3/uL (0.0-0.2); Basophils Percent Auto 0.6 % (0-2); Eosinophils Absolute Auto 0.2 X10*3/uL (0.0-0.4); Eosinophils Percent Auto 1.9 % (0-4); Hematocrit 46.4 % (42.0-52.0); Hemoglobin 16.2 g/dl (14.0-18.0); Imm Gran Abs Auto 0.04 X10*3/uL (0.00-0.03); Imm Gran Pct Auto 0.4 % (0.0-0.4); Lymphocytes Percent Auto 27.8 % (20-40); Mean Corpuscular HGB Conc 34.9 g/dl (31.0-36.0); Mean Corpuscular Hemoglobin 30.8 pg (27.0-33.0); Mean Corpuscular Volume 88.2 fL (80.0-98.0); Mean Platelet Volume 9.1 fL (9.4-12.4); Monocytes Absolute Auto 0.6 X10*3/uL (0.1-1.2); Monocytes Percent Auto 5.8 % (2-11); Neutrophils Absolute Auto 6.9 x10*3/uL (2.0-8.3); Neutrophils Percent Auto 63.5 % (45-73); Platelet Count 308 X10*3/uL (160-400); Red Blood Count 5.26 X10*6/uL (4.60-5.80); Red Cell Distribution Width 12.6 % (11.0-16.0); White Blood Count 10.8 X10*3/uL (4.8-10.8)
[2024-12-24] MEDS: Magnesium Hydrox/Alum Hydrox 30 ML ORAL.SUSP PO (20:09)
[2024-12-24] MEDS: PHENobarb/Hyoscy/Atropine/Scop 10 ML ELIXIR PO (20:09)
[2024-12-24] MEDS: Pantoprazole Sodium 40 MG/10 ML VIAL 80 MG IVPUSH (20:09)
[2024-12-24] MEDS: iohexoL 350 MG/ML 100 ML INFUS..BTL IV (20:56)
[2024-12-24 22:00] VITALS: BP 142/81; PULSE 63; RESP 16; TEMP 36.7; O2SAT 97
[2024-12-24 23:26] VITALS: BP 142/81; PULSE 63; RESP 16; TEMP 36.7; O2SAT 97
== END 2024-12-24 23:27 | disposition home or self-care (01) ==
PROVIDERS: Physician Assistant; Emergency Provider Emergency Medicine Emergency Medical Services
DX: K21.9 Gastro-esophageal reflux disease without esophagitis (principal); K52.9 Noninfective gastroenteritis and colitis, unspecified; K92.0 Hematemesis; Z03.818 Encounter for observation for suspected exposure to other biological agents ruled out
CPT/HCPCS: 0241U; 36415; 74178; 80053; 82272; 83690; 85025; 85610; 96374; 99284; J2470; Q9967

== ENCOUNTER → 2024-12-24 20:46 | Outpatient (BNV) | payer OTHER, SELFPAY | PROVIDERS: Emergency Provider Emergency Medicine Emergency Medical Services; Visit Provider Radiology Diagnostic Radiology | DX: R10.9 Unspecified abdominal pain (principal); K62.5 Hemorrhage of anus and rectum | CPT/HCPCS: 74178 ==